=== PATIENT | female | born 1960 | race Caucasian/White ===

== ENCOUNTER 2023-01-01 13:10 | Emergency (ER) | payer OTHER, SELFPAY ==
[2023-01-01 13:20] VITALS: BP 89/73; PULSE 82; RESP 20; TEMP 36.8; O2SAT 100
--- NOTE | 2023-01-01 13:37 | ED.SKABFB ---
HPI - Skin/Abscess/Foreign Bdy General Chief complaint: Skin/Abscess/Foreign Body Stated complaint: Skin Sore History of Present Illness HPI narrative: Patient brought in by evaluation by her sister. Patient's foot is tearful due to the recent loss of her son and has itching and thinks she has infection to her scalp due to recent treatment of head lice. Patient states she has several sores to her scalp and thinks it is from her continuous itching to her scalp. Patient recently moved in with her sister and is in search of a primary care provider in the area due to her and her inability to drive. And lack of transportation. Related Data Home Medications Medication Instructions Recorded Confirmed albuterol sulfate 90 mcg/actuation inhalation 01/01/23 aerosol inhaler amlodipine 5 mg tablet mg 01/01/23 budesonide-formoterol HFA 160 inhalation 01/01/23 mcg-4.5 mcg/actuation aerosol inhaler (Symbicort) celecoxib 200 mg capsule mg 01/01/23 doxepin 25 mg capsule mg 01/01/23 famotidine 40 mg tablet mg 01/01/23 fluticasone propionate 230 inhalation 01/01/23 mcg-salmeterol 21 mcg/actuation HFA inhaler (Advair HFA) paroxetine HCl 30 mg tablet mg PO 01/01/23 trazodone 150 mg tablet mg 01/01/23 Allergies Allergy/AdvReac Type Severity Reaction Status Date / Time codeine AdvReac Nausea Verified 01/01/23 13:29 Review of Systems Review of Systems: CONSTITUTIONAL: Denies fever, chills, or sweats. EYES: Denies visual changes, redness, or discharge. ENT: Denies rhinorrhea, congestion, sore throat, or otalgia. CARDIOVASCULAR: Denies chest pain, palpitations, or edema. RESPIRATORY: Denies cough or dyspnea. GASTROINTESTINAL: Denies abdominal pain, nausea, vomiting, or diarrhea. GENITOURINARY: Denies dysuria or hematuria. SKIN: Denies rash or itching. MUSCULOSKELETAL: Denies back pain, joint pain, or myalgia. NEUROLOGIC: Denies headache, numbness, or weakness. PSYCHIATRIC: Denies anxiety or depression. [facility] Comments At time of signature, agree with nursing past medical, surgical, social and family history. There is no relevant family history pertinent to the presenting complaint Exam Narrative: My normal adult exam is GENERAL: Well-appearing, well-nourished, and in no acute distress. HEAD: Normocephalic, atraumatic. No symptoms of head lice noted several 0.5 mm areas to the scalp consistent with developing abscess no induration and no fluctuance no drainage to area EYES: PERRLA and EOMI. ENT: Nares clear, no rhinorrhea or epistaxis. Mucous membranes moist. NECK: Supple. CHEST: Clear to auscultation. No respiratory distress. HEART: Regular rate and rhythm. No murmur heard. Normal peripheral pulses. ABDOMEN: Soft, nontender, nondistended, normal active bowel sounds. EXTREMITIES: Normal range of motion. No edema. SKIN: Warm, dry, no rash. NEURO: No focal deficits. Alert and oriented x3. [place] Coma Scale Eye Opening: Spontaneous 4 Carbon Coma Scale Motor: Obeys Commands 6 [place] Coma Scale Verbal: Oriented 5 [place] Coma Scale Total 15 Course Course Level of Care: Express Care Visit Vital Signs Vital signs: Vital Signs Temperature 36.8 C 01/01/23 13:20 Pulse Rate 82 01/01/23 13:20 Respiratory Rate 20 01/01/23 13:20 Blood Pressure 89/73 L 01/01/23 13:20 Pulse Oximetry 100 01/01/23 13:20 Oxygen Delivery Room Air 01/01/23 13:20 Temperature 36.8 C 01/01/23 13:20 Pulse Rate 82 01/01/23 13:20 Respiratory Rate 20 01/01/23 13:20 Blood Pressure 89/73 L 01/01/23 13:20 Pulse Oximetry 100 01/01/23 13:20 Oxygen Delivery Room Air 01/01/23 13:20 Discussed with patient and caregiver need to make an appointment with established primary care provider in [facility] and to call public transportation to arrange transportation to physician's office visit. Discussed red flags and when to go to ER. Patient agreeable with plan of care. Will place on antibiotic fo
== END 2023-01-01 13:49 | disposition home or self-care (01) ==
PROVIDERS: Emergency Provider Nurse Practitioner Family
DX: L02.811 Cutaneous abscess of head [any part, except face] (principal); I10 Essential (primary) hypertension; J45.909 Unspecified asthma, uncomplicated; K21.9 Gastro-esophageal reflux disease without esophagitis; M19.90 Unspecified osteoarthritis, unspecified site
CPT/HCPCS: 99213; G0463